=== PATIENT | female | born 1990 | race Two or more races ===

== ENCOUNTER 2024-10-08 11:39 | Emergency (ER) | payer OTHER ==
[~2024-10-08] VITALS: Ht 160 cm; Wt 72.6 kg
[2024-10-08] MEDS ORDERED: FAMOTIDINE/PF 20 MG/2 ML VIAL IV ONE (15:30)
[2024-10-08] MEDS ORDERED: ONDANSETRON HCL 2 MG/ML VIAL IV ONE (15:30)
[2024-10-08] MEDS ORDERED: ONDANSETRON HCL 2 MG/ML VIAL ONE (15:42)
[2024-10-08] MEDS ORDERED: FAMOTIDINE/PF 20 MG/2 ML VIAL ONE (15:43)
[2024-10-08] MEDS ORDERED: 0.9 % SODIUM CHLORIDE 1,000 ML IV ONE (15:45)
[2024-10-08 16:04] LABS: HEMOGLOBIN 14.1 g/dL (12.0-15.00); MEAN CELL VOLUME 93.8 fL (80.00-100.00); MEAN CORPUSCULAR HEMOGLOBIN 31.5 pg (27.00-32.0); MEAN CORPUSCULAR HGB CONC 33.6 g/dl (32.0-36.0); PLATELET COUNT 237 K/uL (150-450); RED BLOOD COUNT 4.48 M/uL (4.00-6.00); RED CELL DISTRIBUTION WIDTH 13.1 % (11.5-14.5)
[2024-10-08 16:30] LABS: INR 1.02; PARTIAL THROMBOPLASTIN TIME 29.9 SECONDS (22.0-34.0); PROTHROMBIN TIME 11.1 SECONDS (9.0-11.5)
[2024-10-08 16:39] LABS: ALBUMIN 4.2 gm/dL (3.4-5.0); BILIRUBIN TOTAL 0.58 mg/dL (0.3-1.2); CALCIUM 9.3 mg/dL (8.5-10.1); CREATININE SERUM 0.74 mg/dL (0.55-1.02); GFR 89.31; GLOBULINA 4.1 G/DL (2.4-3.5); POTASSIUM 4.1 mEq/L (3.5-5.1); TOTAL PROTEIN 8.3 gm/dL (6.4-8.2)
[2024-10-08 16:41] LABS: PH,URINE 5.5 (5.0-8.0); URINE APPEARANCE Clear; URINE BILIRRUBIN Negative (NEGATIVE); URINE BLOOD Moderate; URINE COLOR Yellow; URINE GLUCOSE Negative (NEGATIVE); URINE LEUKOCYTE Negative; URINE NITRATE Negative; URINE PROTEIN Negative (NEGATIVE); URINE UROBILINOGEN 0.2 E.U./dl
[2024-10-08 16:46] LABS: URINE BACTERIA 18.3 uL (0.0-1933); URINE RBC 99.1 uL (0.0-20.8)
[2024-10-08 16:50] LABS: URINE CAST 0.14 uL (0.0-1.40); URINE EPITHELIAL CELLS 0.4 uL (0.0-38.8); URINE KETONE 80 (NEGATIVE); URINE WBC 0.6 uL (0.0-23.2)
[2024-10-08] MEDS ORDERED: KETOROLAC TROMETHAMINE 30 MG VIAL IV ONE (18:45)
[2024-10-08] MEDS ORDERED: KETOROLAC TROMETHAMINE 30 MG VIAL ONE (18:52)
[2024-10-08] MEDS ORDERED: DICLOFENAC SODI50 MG PO (19:31)
== END 2024-10-08 20:05 ==
LOC: ER 11:42
PROVIDERS: Emergency Medicine
DX: R10.31 Right lower quadrant pain (principal); K76.89 Other specified diseases of liver